=== PATIENT | female | born 1965 | race Caucasian/White ===

== ENCOUNTER 2020-05-21 11:59 | Emergency (ER) | payer OTHER ==
[~2020-05-21] VITALS: Ht 170.2 cm; Wt 55.8 kg
[2020-05-21 11:59] VITALS: BP 129/88
--- NOTE | 2020-05-21 12:01 | NUR ---
Patient BIBA to bed 6 at this time
[2020-05-21] MEDS ORDERED: NALOXONE PFS 2 MG/2 ML SYR IVP ONE (12:15)
[2020-05-21] MEDS ORDERED: NALOXONE PFS 2 MG/2 ML SYR ONE (12:15)
--- NOTE | 2020-05-21 12:17 | NUR ---
NARCAN 1MG ADMINISTERED INTRANASAL IN BOTH NARES.
--- NOTE | 2020-05-21 12:20 | NUR ---
KASHMIR SWAB COLLECTED AND SENT TO LAB.
--- NOTE | 2020-05-21 12:27 | NUR ---
PATIENT PRESENTS TO ED WITH ALOC SINCE TODAY. PT CHECKED INTO A REHAB FACILITY AND STAFF FOUND HER UNRESPONSIVE THIS MORNING. PT IS RESPONISVE TO PAINFUL STIMULI ONLY. SKIN IS PINK/WARM/DRY; LUNGS CLEAR BL; HR EVEN AND REGULAR; NO FEVER,SOB,OR COUGH AT THIS TIME;VSS; PATIENT POSITIONED FOR COMFORT; HOB ELEVATED; BEDRAILS UP X2; BED DOWN. ER MD MADE AWARE OF PT STATUS.
[2020-05-21 12:37] LABS: BASOPHILS % (AUTO) 1.5 % (0.0-2.0); EOSINOPHILS # (AUTO) 0.1 K/uL (0-0.4); EOSINOPHILS % (AUTO) 2.2 % (0.0-4.0); HEMATOCRIT 41.8 % (36-48); HEMOGLOBIN 14.2 g/dL (12.0-16.0); LYMPHOCYTES # (AUTO) 0.5 K/uL (2.5-16.5); LYMPHOCYTES % (AUTO) 15.9 % (20.5-51.1); MEAN CORPUSCULAR HEMOGLOBIN 32 pg (27-31); MEAN CORPUSCULAR HGB CONC 34 g/dL (33-37); MEAN CORPUSCULAR VOLUME 93.3 fL (80-94); MONOCYTES # (AUTO) 0.4 K/uL (0.8-1.0); MONOCYTES % (AUTO) 14.4 % (1.7-9.3); PLATELET COUNT (AUTO) 203 K/uL (140-450); RED BLOOD CELL COUNT(AUTO) 4.49 MIL/uL (4.20-5.40); RED CELL DISTRIBUTION WIDTH 14.5 % (11.6-13.7); WHITE BLOOD COUNT (AUTO) 3.1 K/uL (4.8-10.8)
[2020-05-21] MEDS ORDERED: ESK300 PO (12:42)
[2020-05-21] MEDS ORDERED: ACYC400T PO (12:42)
[2020-05-21] MEDS ORDERED: HYDR25CA1 PO (12:42)
--- NOTE | 2020-05-21 12:46 | NUR ---
PT TAKEN TO CT VIA [facility]AN[facility]
[2020-05-21] MEDS ORDERED: DOCU-299 PO (12:51)
[2020-05-21] MEDS ORDERED: RISP0.5T3 PO (12:51)
[2020-05-21] MEDS ORDERED: THIA100T45 PO (12:51)
[2020-05-21] MEDS ORDERED: FLUO10CA21 PO (12:51)
[2020-05-21] MEDS ORDERED: ZIPR40CA39 PO (12:51)
[2020-05-21] MEDS ORDERED: FOLI1TAB90 PO (12:51)
--- NOTE | 2020-05-21 12:52 | NUR ---
# 14 FR Urinary catheter inserted per md orders utilizing sterile technique. Immediate return of 500 ml of daek yellow urine noted. Urine sample collected and sent to lab. Pt tolerated procedure well.
[2020-05-21 12:53] LABS: ALBUMIN 3.2 g/dL (3.4-5.0); CARBON DIOXIDE 28.8 mmol/L (21-32); CREATININE 0.6 mg/dL (0.6-1.3); POTASSIUM 3.8 mmol/L (3.5-5.1); TOTAL BILIRUBIN 1.4 mg/dL (0.0-1.0)
--- NOTE | 2020-05-21 12:53 | NUR ---
PT BACK FROM CT
[2020-05-21] MEDS ORDERED: NALOXONE 0.4 MG/ML VIAL IVP ONE (12:55)
[2020-05-21 12:58] LABS: PROTHROMBIN TIME 9.3 secs (10.8-13.4)
[2020-05-21 13:19] LABS: BARBITURATE, URINE NEGATIVE ng/ml (NEG <=200); BENZODIAZEPINE, URINE POSITIVE ng/mL (NEG <=200); CANNABINOID, URINE NEGATIVE ng/mL (NEG <=50); COCAINE, URINE NEGATIVE ng/mL (NEG <=300); OPIATE, URINE NEGATIVE ng/mL (NEG <=2000); PHENCYCLIDINE SCREEN,URINE NEGATIVE ng/mL (NEG <=25)
[2020-05-21] MEDS ORDERED: PROC-62 PO (13:24)
[2020-05-21] MEDS ORDERED: CLON0.1T42 PO (13:24)
[2020-05-21] MEDS ORDERED: TRAZ-343 PO (13:26)
[2020-05-21] MEDS ORDERED: BEN10 PO (13:26)
[2020-05-21] MEDS ORDERED: METH-1681 PO (13:26)
[2020-05-21] MEDS ORDERED: OMEP20TC22 PO (13:26)
[2020-05-21] MEDS ORDERED: LEVE500T9 PO (13:27)
[2020-05-21 13:30] LABS: APPEARANCE,URINE CLEAR (CLEAR); BILIRUBIN,URINE NEGATIVE (NEGATIVE); BLOOD, URINE NEGATIVE (NEGATIVE); COLOR,URINE YELLOW (YELLOW); LEUKOCYTE ESTERASE ,URINE NEGATIVE (NEGATIVE); NITRITE, URINE NEGATIVE (NEGATIVE); PH,URINE 5.5 (5.0-9.0); UGLUCOSE NEGATIVE (NEGATIVE)
--- NOTE | 2020-05-21 14:45 | NUR ---
PT SLEEPING IN BED, AROUSEABLE TO PAIN. VSS.
[2020-05-21 18:45] VITALS: BP 118/79
--- NOTE | 2020-05-21 19:01 | NUR ---
Patient appears to be resting comfortably in bed. Vital Signs within normal limits. Respirations even and unlabored.
--- NOTE | 2020-05-21 22:52 | NUR ---
PT SELF AMBULATORY WITH NO ASSSISTANCE
--- NOTE | 2020-05-21 23:01 | NUR ---
Patient discharged with v/s stable. Written and verbal after care instructions given and explained. Patient verbalized understanding. Ambulatory with steady gait. All questions addressed prior to discharge. Advised to follow up with PMD.
== END 2020-05-21 23:02 | disposition home or self-care (01) ==
LOC: MED 11:59
DX: G93.40 Encephalopathy, unspecified (principal); F15.10 Other stimulant abuse, uncomplicated; Z79.899 Other long term (current) drug therapy; Z20.828 Contact with and (suspected) exposure to other viral communicable diseases
CPT/HCPCS: 36415; 70450; 71045; 80053; 80305; 81003; 81025; 83880; 84484; 85025; 85610; 85730; 87426; 93005; 96374; 99291; J2310